=== PATIENT | female | born 1960 | race Caucasian/White ===

== ENCOUNTER 2024-07-26 14:35 | Day surgery (SDC) | payer OTHER ==
[2024-07-23 08:45] VITALS: BP 109/76
[~2024-07-26] VITALS: Ht 154.9 cm; Wt 68.0 kg
[~2024-07-26 14:35] MED LIST: AMBIEN10 MG PO; CLONAZEPAM2 MG PO; GRALISE600 MG PO; METFORMIN HCL500 M3 PO; PROTONIX20 MG PO; SYNTHROID50 MCG PO; TAGAMET HB200 MG PO; TOPROL XL50 M1 PO
[2024-07-26] MEDS ORDERED: CEFAZOLIN SODIUM 1,000 MG VIAL ONE (15:34)
[2024-07-26] MEDS ORDERED: CEFADROXIL500 MG PO (17:43)
[2024-07-26] MEDS ORDERED: PROMETHAZINE HCL 25 MG/ML AMPUL IM PRN (17:45)
[2024-07-26] MEDS ORDERED: MEPERIDINE HCL/PF 25 MG/ML VIAL IM PRN (17:45)
[2024-07-26] MEDS ORDERED: CELEBREX200MG PO (17:45)
[2024-07-26] MEDS ORDERED: MORPHINE SULFATE 4 MG/ML VIAL IV ONE (18:35)
== END 2024-07-26 19:50 | disposition home or self-care (01) ==
LOC: CIR.AMB 14:35
PROVIDERS: ATTEND Orthopaedic Surgery Sports Medicine
DX: G56.02 Carpal tunnel syndrome, left upper limb (principal); M65.832 Other synovitis and tenosynovitis, left forearm; Z88.8 Allergy status to other drugs, medicaments and biological substances; Z88.5 Allergy status to narcotic agent